=== PATIENT | female | born 1975 | race Caucasian/White ===

== ENCOUNTER → 2017-11-14 | Outpatient (CLI) | payer OTHER ==
--- NOTE | 2017-11-18 07:52 | MM ---
Reason for exam: screening (asymptomatic). Last mammogram was performed 3 years and 7 months ago. Physical Findings: A clinical breast exam by your physician is recommended on an annual basis and results should be correlated with mammographic findings. MG Screening Mammo w CAD Bilateral CC, MLO, and XCCL view(s) were taken. Prior study comparison: April 18, 2014, bilateral MG screening mammo w CAD. There are scattered fibroglandular densities. No significant changes when compared with prior studies. ASSESSMENT: Negative, BI-RAD 1 RECOMMENDATION: Routine screening mammogram of both breasts in 1 year.
== END | disposition home or self-care (01) ==
LOC: RADMAMWWP 16:50
PROVIDERS: ATTEND Family Medicine Adolescent Medicine
DX: Z12.31 Encounter for screening mammogram for malignant neoplasm of breast (principal)
CPT/HCPCS: 77067

== ENCOUNTER → 2018-07-10 | Outpatient (CLI) | payer OTHER ==
[2018-07-10 18:43] LABS: Hemoglobin A1C 6.5 % (4.0-6.0)
== END ==
LOC: LABWHC1 09:59
PROVIDERS: ATTEND Internal Medicine Endocrinology, Diabetes & Metabolism
DX: E11.9 Type 2 diabetes mellitus without complications (principal)
CPT/HCPCS: 36415; 83036

== ENCOUNTER → 2018-08-07 | Outpatient (CLI) | payer OTHER ==
[2018-08-07 18:16] LABS: HCT 35.3 % (34.0-46.0); HGB 11.4 gm/dL (11.4-16.0); MCH 28.6 pg (25.0-35.0); MCHC 32.3 g/dL (31.0-37.0); MCV 88.5 fL (80.0-100.0); Mean Platelet Volume 7.8; Platelet Count 319 k/uL (150-450); RBC 3.99 m/uL (3.80-5.40); WBC 9.8 k/uL (3.8-10.6)
[2018-08-07 18:29] LABS: Uric Acid 3.4 mg/dL (3.7-7.4)
[2018-08-07 20:51] LABS: Creatinine 24 Hour,Urine 1663.9 mg/24hr (800.0-1800.0)
[2018-08-08 04:39] LABS: Total Volume 24 Hour,Urine 675 mL
[2018-08-08 04:50] LABS: Total Protein 24 Hour,Urine 166.7 mg/24Hr
== END | disposition home or self-care (01) ==
LOC: LABWHC1 16:36
PROVIDERS: ATTEND Obstetrics & Gynecology
DX: O13.9 Gestational [pregnancy-induced] hypertension without significant proteinuria, unspecified trimester (principal); Z3A.00 Weeks of gestation of pregnancy not specified
CPT/HCPCS: 36415; 81050; 82575; 84156; 84450; 84460; 84550; 85027